=== PATIENT | male | born 1995 | race Hispanic/Latino ===

== ENCOUNTER 2019-10-15 08:36 | Emergency (ER) | payer OTHER ==
[2019-10-15] MEDS ORDERED: NA CHLORIDE 0.9% 2,000 ML ONE (10:47)
[2019-10-15] MEDS ORDERED: ACETAMINOPHEN 500 MG TAB ONE (10:47)
[2019-10-15 10:55] LABS: Absolute Lymphocytes (CBC) 1.3 K/uL (0.7-4.9); Basophils % 0.5 % (0-1.3); Hematocrit 50.4 % (39.6-49.0); Lymphocytes % 10.9 % (15.3-44.8); MPV 8.4 fL (7.6-11.3); RBC Red Blood Cell Count 5.61 M/uL (4.33-5.43)
[2019-10-15 11:10] LABS: Albumin 4.1 g/dL (3.4-5.0); Bilirubin Direct 0.2 mg/dL (0-0.2); Bilirubin Total 1.1 mg/dL (0.2-1.0); Protein, Total 8.9 g/dL (6.4-8.2)
[2019-10-15 11:17] LABS: Blood Morphology Comment NOT SEEN (NOT SEEN); Platelet Estimate ADEQ; Urine White Blood Cell Casts OK
--- NOTE | 2019-10-15 11:26 | RAD REPORT ---
EXAM DESCRIPTION: RAD - Chest Single View - 10/15/2019 11:14 am CLINICAL HISTORY: COUGH Chest pain. COMPARISON: No comparisons FINDINGS: Portable technique limits examination quality. The lungs are grossly clear. The heart is normal in size. No displaced fractures. IMPRESSION: No acute intrathoracic process suspected.
--- NOTE | 2019-10-15 12:50 | EDPHYS ---
Physician Documentation [facility] Name: Mg Guajardo Age: 24 yrs Sex: Male : 1995 Arrival Date: 10/15/2019 Time: 08:40 Bed 18 Private MD: ED Physician Tj Gordon HPI: 10/14 10:19 This 24 yrs old Male presents to ER via Ambulatory with complaints of kdr Shortness Of Breath, Cough, Nausea, Fever, Fatigue. 10:19 The patient has shortness of breath at rest, with light activity. Onset: The kdr symptoms/episode began/occurred gradually, Saturday. Duration: The symptoms are intermittent, with no pattern. The patient's shortness of breath is aggravated by exertion, light activity. Associated signs and symptoms: Pertinent positives: non-productive cough, fever, nausea. Severity of symptoms: At their worst the symptoms were mild in the emergency department the symptoms are unchanged. The patient has not experienced similar symptoms in the past. The patient has not recently seen a physician. Historical: - Allergies: 09:10 No Known Allergies; aa5 - Home Meds: 09:10 None [Active]; aa5 - PMHx: 09:10 None; aa5 - PSHx: 09:10 None; aa5 - Immunization history:: Adult Immunizations up to date. - Social history:: Smoking status: Patient denies any tobacco usage or history of. ROS: 10:19 Eyes: Negative for injury, pain, redness, and discharge, Neck: Negative for injury, kdr pain, and swelling, Cardiovascular: Negative for chest pain, palpitations, and edema, Abdomen/GI: Negative for abdominal pain, nausea, vomiting, diarrhea, and constipation. 10:19 Back: Negative for injury and pain, MS/Extremity: Negative for injury and deformity, Skin: Negative for injury, rash, and discoloration, Neuro: Negative for headache, weakness, numbness, tingling, and seizure activity. Psych: Negative for depression, anxiety, suicide ideation, homicidal ideation, and hallucinations, Allergy/Immunology: Negative for hives, rash, and allergies, Endocrine: Negative for neck swelling, polydipsia, polyuria, polyphagia, and marked weight changes, Hematologic/Lymphatic: Negative for swollen nodes, abnormal bleeding, and unusual bruising. 10:19 Constitutional: Positive for chills, fever, malaise. 10:19 Respiratory: Positive for cough, shortness of breath, on exertion. Exam: 10:19 Constitutional: This is a well developed, well nourished patient who is awake, alert, kdr and in no acute distress. Head/Face: Normocephalic, atraumatic. Eyes: Pupils equal round and reactive to light, extra-ocular motions intact. Lids and lashes normal. Conjunctiva and sclera are non-icteric and not injected. Cornea within normal limits. Periorbital areas with no swelling, redness, or edema. Neck: Trachea midline, no thyromegaly or masses palpated, and no cervical lymphadenopathy. Supple, full range of motion without nuchal rigidity, or vertebral point tenderness. No Meningismus. Chest/axilla: Normal chest wall appearance and motion. Nontender with no deformity. No lesions are appreciated. Cardiovascular: Regular rate and rhythm with a normal S1 and S2. No gallops, murmurs, or rubs. Normal PMI, no JVD. No pulse deficits. Respiratory: Lungs have equal breath sounds bilaterally, clear to auscultation and percussion. No rales, rhonchi or wheezes noted. No increased work of breathing, no retractions or nasal flaring. Abdomen/GI: Soft, non-tender, with normal bowel sounds. No distension or tympany. No guarding or rebound. No evidence of tenderness throughout. Back: No spinal tenderness. No costovertebral tenderness. Full range of motion. Skin: Warm, dry with normal turgor. Normal color with no rashes, no lesions, and no evidence of cellulitis. MS/ Extremity: Pulses equal, no cyanosis. Neurovascular intact. Full, normal range of motion. Neuro: Awake and alert, GCS 15, oriented to person, place, time, and situation. Cranial nerves II-XII grossly intact. Motor strength 5/5 in all extremities. Sensory grossly intact. Cerebellar exam normal. Normal gait. Psych: Awake, alert, with orientation to person, place and time. Behavior, mood, and affect are within normal limits. Vital Signs: 09:08 BP 150 / 94; Pulse 103; Resp 18 S; Temp 99.2(O); Pulse Ox 98% on R/A; Weight 88.45 kg aa5 (R); Height 5 ft. 8 in. (172.72 cm) (R); Pain 5/10; 10:12 BP 131 / 111; Pulse 115; Resp 19; Temp 100.6; Pulse Ox 98% ; jl7 11:30 BP 130 / 70; Pulse 95; Resp 15; Temp 101.3; Pulse Ox 97% ; jl7 12:33 BP 133 / 69; Pulse 101; Resp 19; Temp 100.1; Pulse Ox 100% ; jl7 13:28 BP 134 / 68; Pulse 100; Resp 16; Pulse Ox 100% ; jl7 09:08 Body Mass Index 29.65 (88.45 kg, 172.72 cm) aa5 MDM: 10:19 Data reviewed: vital signs, nurses notes, lab test result(s), radiologic studies. [facility] Counseling: I had a detailed discussion with the patient and/or guardian regarding: the historical points, exam findings, and any diagnostic results supporting the discharge/admit diagnosis, lab results, radiology results. 12:50 Patient medically screened. [facility] 10/14 09:50 Order name: COVID-19 [facility] 10/14 09:57 Order name: Flu; Complete Time: 11:26 [facility] 10/14 09:57 Order name: Strep; Complete Time: 11:26 [facility] 10/14 10:12 Order name: Amylase, Serum; Complete Time: 11: [facility] 10/14 10:12 Order name: Basic Metabolic Panel; Complete Time: 11:26 [facility] 10/14 10:12 Order name: Blood Culture Adult (2) [facility] 10/14 10:12 Order name: CBC with Diff; Complete Time: 11:26 [facility] 10/14 10:12 Order name: CPK; Complete Time: 11:26 [facility] 10/14 10:12 Order name: Lactate; Complete Time: 11:26 [facility] 10/14 10:12 Order name: LFT's; Complete Time: 11:26 [facility] 10/14 10:12 Order name: Procalcitonin; Complete Time: 11:45 [facility] 10/14 10:12 Order name: Urine Microscopic Only [facility] 10/14 10:32 Order name: Throat Culture [facility] 10/14 11:17 Order name: CBC Smear Scan; Complete Time: 11:26 [facility] 10/14 09:58 Order name: XRAY Chest (1 view); Complete Time: 12:48 [facility] 10/14 10:12 Order name: Accucheck; Complete Time: 10: [facility] 10/14 10:12 Order name: Cardiac monitoring; Complete Time: 10: [facility] 10/14 10:12 Order name: IV Saline Lock - Large Bore; Complete Time: 10:44 [facility] 10/14 10:12 Order name: Labs collected and sent; Complete Time: 10:44 [facility] 10/14 10:12 Order name: O2 Per Protocol; Complete Time: 10: [facility] 10/14 10:12 Order name: O2 Sat Monitoring; Complete Time: 10: [facility] 10/14 13:08 Order name: Urine Dipstick--Ancillary (enter results) bd Administered Medications: 10:51 Drug: NS 0.9% (30 ml/kg) 30 ml/kg Route: IV; Rate: bolus; Site: right antecubital; [facility] 13:25 Follow up: Response: No adverse reaction; IV Status: Completed infusion; IV Intake: [facility] 1000ml 10:51 Drug: Tylenol 1000 mg Route: PO; [facility] 12:34 Follow up: Response: No adverse reaction; Temperature is decreased [facility] Disposition: 10/15/19 12:50 Discharged to Home. Impression: Acute upper respiratory infection, unspecified, Cough, Fever, unspecified. - Condition is Stable. - Discharge Instructions: Upper Respiratory Infection, Adult, [id number], Cough, Adult, [id number]. - Prescriptions for Tessalon Perles 100 mg Oral Capsule - take 1 capsule by ORAL route every 8 hours As needed; 15 capsule. Albuterol Sulfate 90 mcg/actuation - inhale 1-2 puff by INHALATION route every 4-6 hours; 1 Inhaler. - Medication Reconciliation Form, Thank You Letter, Work release form form. - Follow up: Private Physician; When: 2 - 3 days; Reason: If symptoms return, Further diagnostic work-up, Recheck today's complaints, Continuance of care, Re-evaluation by your physician. - Problem is new. - Symptoms have improved. Signatures: Dispatcher [employer] EDKS Tj Gordon MD MD kdr Calderon, Audri, RN RN [email or web address] Lucio Tucker RN RN jl7 Corrections: (The following items were deleted from the chart) 10:52 10:12 EKG - Nurse/Tech ordered. [facility] jl7 13:28 12:50 10/15/2019 12:50 Discharged to Home. Impression: Acute upper respiratory jl7 infection, unspecified; Cough; Fever, unspecified. Condition is Stable. Forms are Medication Reconciliation Form, Thank You Letter, Antibiotic Education, Prescription Opioid Use. Follow up: Private Physician; When: 2 - 3 days; Reason: If symptoms return, Further diagnostic work-up, Recheck today's complaints, Continuance of care, Re-evaluation by your physician. Problem is new. Symptoms have improved. kdr
--- NOTE | 2019-10-15 12:50 | ER ---
Nurse's Notes [facility] Name: Mg Guajardo Age: 24 yrs Sex: Male : 1995 Arrival Date: 10/15/2019 Time: 08:40 Bed 18 Private MD: Diagnosis: Acute upper respiratory infection, unspecified;Cough;Fever, unspecified Presentation: 10/14 09:08 Chief complaint: Patient states: cough, SOB, fatigue, nausea, and fever that began aa5 Saturday. 09:08 Coronavirus screen: Surgical mask placed on patient. Patient moved to private room, aa5 placed in contact and droplet isolation with eye protection until further assessment. Patient reports a cough. Patient reports shortness of breath or difficulty breathing. Patient reports a measured and/or subjective temperature greater than 100.4F. Patient denies travel on a cruise ship or to a country the [facility] currently lists as an affected area. Patient denies contact with known and/or suspected case of COVID-19. 09:08 Method Of Arrival: Ambulatory aa5 09:08 Ebola Screen: Patient negative for fever greater than or equal to 101.5 degrees aa5 Fahrenheit, and additional compatible Ebola Virus Disease symptoms. Initial Sepsis Screen: Does the patient meet any 2 criteria? HR > 90 bpm. Does the patient have a suspected source of infection? No. Patient's initial sepsis screen is negative. Risk Assessment: Do you want to hurt yourself or someone else? Patient reports no desire to harm self or others. Onset of symptoms was September 2019. 09:08 Acuity: NGUYỄN 4 aa5 10:12 Acuity: NGUYỄN 3 jl7 Historical: - Allergies: 09:10 No Known Allergies; aa5 - Home Meds: 09:10 None [Active]; aa5 - PMHx: 09:10 None; aa5 - PSHx: 09:10 None; aa5 - Immunization history:: Adult Immunizations up to date. - Social history:: Smoking status: Patient denies any tobacco usage or history of. Screenin:00 Abuse screen: Denies threats or abuse. Denies injuries from another. Nutritional jl7 screening: No deficits noted. Tuberculosis screening: No symptoms or risk factors identified. Fall Risk IV access (20 points). Total Hoskins Fall Scale indicates No Risk (0-24 pts). Assessment: 09:30 General: Appears in no apparent distress. uncomfortable, Behavior is calm, cooperative, jl7 appropriate for age. Pain: Denies pain. Neuro: Level of Consciousness is awake, alert, obeys commands, Oriented to person, place, time, situation. Cardiovascular: Patient's skin is warm and dry. Rhythm is regular. Respiratory: Reports cough that is non-productive, Airway is patent Respiratory effort is even, unlabored, Respiratory pattern is regular, symmetrical, Breath sounds are clear. GI: Reports nausea. Derm: Skin is pink, warm \T\ dry. 10:15 Reassessment: ERD notified of VS, raised level NGUYỄN to 3. jl7 11:22 Reassessment: PUI # [id number]. aa5 11:30 Reassessment: Patient appears in no apparent distress at this time. No changes from jl7 previously documented assessment. Patient and/or family updated on plan of care and expected duration. Pain level reassessed. Patient is alert, oriented x 3, equal unlabored respirations, skin warm/dry/pink. 12:30 Reassessment: Patient appears in no apparent distress at this time. Patient and/or jl7 family updated on plan of care and expected duration. Pain level reassessed. Patient is alert, oriented x 3, equal unlabored respirations, skin warm/dry/pink. 13:00 Reassessment: Pt will be discharged once fluids are done infusing. jl7 Vital Signs: 09:08 BP 150 / 94; Pulse 103; Resp 18 S; Temp 99.2(O); Pulse Ox 98% on R/A; Weight 88.45 kg aa5 (R); Height 5 ft. 8 in. (172.72 cm) (R); Pain 5/10; 10:12 BP 131 / 111; Pulse 115; Resp 19; Temp 100.6; Pulse Ox 98% ; jl7 11:30 BP 130 / 70; Pulse 95; Resp 15; Temp 101.3; Pulse Ox 97% ; jl7 12:33 BP 133 / 69; Pulse 101; Resp 19; Temp 100.1; Pulse Ox 100% ; jl7 13:28 BP 134 / 68; Pulse 100; Resp 16; Pulse Ox 100% ; jl7 09:08 Body Mass Index 29.65 (88.45 kg, 172.72 cm) aa ED Course: 08:40 Patient arrived in ED. as 09:08 Arm band placed on Patient placed in an exam room, on a stretcher. aa5 09:10 Tj Gordon MD is Attending Physician. kdr 09:10 Lucio Tucker RN is Primary Nurse. jl7 09:12 Triage completed. aa5 10:00 Patient has correct armband on for positive identification. Bed in low position. Call jl7 light in reach. Side rails up X 1. Pulse ox on. NIBP on. 10:00 Flu and/or RSV swab sent to lab. Strep swab sent to lab. COVID-19 swab sent to lab. jl7 10:44 Initial lab(s) drawn, by la, sent to lab. Inserted saline lock: 20 gauge in right em1 antecubital area, using aseptic technique. Blood collected. 11:16 XRAY Chest (1 view) In Process Unspecified. EDMS 11:39 Throat Culture Sent. jl7 13:28 No provider procedures requiring assistance completed. IV discontinued, intact, jl7 bleeding controlled, No redness/swelling at site. Pressure dressing applied. Administered Medications: 10:51 Drug: NS 0.9% (30 ml/kg) 30 ml/kg Route: IV; Rate: bolus; Site: right antecubital; jl7 13:25 Follow up: Response: No adverse reaction; IV Status: Completed infusion; IV Intake: jl7 1000ml 10:51 Drug: Tylenol 1000 mg Route: PO; jl7 12:34 Follow up: Response: No adverse reaction; Temperature is decreased jl7 Intake: 13:25 IV: 1000ml; Total: 1000ml. jl7 Outcome: 12:50 Discharge ordered by . kdr 13:28 Discharged to home ambulatory, with family. jl7 13:28 Condition: stable 13:28 Discharge instructions given to patient, Instructed on discharge instructions, follow up and referral plans. medication usage, Demonstrated understanding of instructions, follow-up care, medications, Prescriptions given X 2. 13:28 Patient left the ED. jl7 Addendum: 10/16/2019 17:54 Addendum: Other attempted to contact pt regarding negative COVID-19 swab results. d m5 Signatures: Dispatcher [employer] EDMS Adelina Cook, RN RN dm5 Tj Gordon MD MD kdr Martinez, Amelia as Martinez, Eric em1 Zo Brar, RN RN aa5 Lucio Tucker RN RN jl7
[2019-10-15 13:28] LABS: Urine Bacteria <20 /HPF (NONE SEEN); Urine Culture Reflex Order NOT NEEDED; Urine RBC <5 /HPF (NONE SEEN)
[2019-10-15 13:45] VITALS: TEMP 100.1; O2SAT 100
[2019-10-15 13:46] VITALS: BP 134/68
[2019-10-15 13:48] LABS: Urine Blood 2+ (NEG); Urine Glucose NEGATIVE (NEG); Urine Protein NEGATIVE (NEG); Urine Specific Gravity 1.025 (1.005-1.030)
== END 2019-10-15 13:28 | disposition home or self-care (01) ==
LOC: ER 08:36
DX: J06.9 Acute upper respiratory infection, unspecified (principal); Z20.828 Contact with and (suspected) exposure to other viral communicable diseases; R50.9 Fever, unspecified; R05 Cough
CPT/HCPCS: 96365; 87040 ×2; 87070; 85025; 80048; 36415; 82150; 82550; 80076; 87081; 83605; 84145; 87804 ×2; 71045; 99284; 96366; J7030; 81003; 81015

== ENCOUNTER 2020-04-12 10:56 | Emergency (ER) | payer OTHER ==
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
[2020-04-14 15:58] VITALS: BP 151/100; TEMP 98.7; O2SAT 97
== END 2020-04-12 11:37 | disposition home or self-care (01) ==
LOC: ER 10:56
DX: S16.1XXA Strain of muscle, fascia and tendon at neck level, initial encounter (principal); V49.49XA Driver injured in collision with other motor vehicles in traffic accident, initial encounter; Z72.0 Tobacco use
CPT/HCPCS: 99283

== ENCOUNTER 2021-10-20 16:27 | Emergency (ER) | payer OTHER ==
--- NOTE | 2021-10-20 17:41 | EDPHYS ---
Physician Documentation [facility] Name: Mg Guajardo Age: 26 yrs Sex: Male : 1995 Arrival Date: 10/20/2021 Time: 16:29 Bed Waiting Private MD: ED Physician MDM: 10/20 17:41 Medical screening is not applicable. kb Administered Medications: No medications were administered Disposition Summary: 10/20/21 17:41 Eloped Disposition: Before Triage kb Reason: wait time kb Signatures: Allyn Mcbride, SANDRA Smart
== END 2021-10-20 17:41 | disposition left against medical advice (07) ==
LOC: ER 16:27
DX: Z02.9 Encounter for administrative examinations, unspecified (principal)